=== PATIENT | female | born 1980 ===

== ENCOUNTER 2017-02-13 09:19 | Observation (INO) | payer OTHER ==
--- NOTE | 2017-02-13 09:35 | C.PDOC ---
History Of Present Illness 36 yo female w/o significant PMHx come in for evaluation of gradual onset of lower abdominal pain since today AM associated with nausea. Otherwise, pt denies fever, chills, recent illness, throat pain, CP, SOB, dyspnea, diaphoresis , palpitation, vomiting, diarrhea, UTI sx. At the time of evaluation, pt appears in pain. Time Seen by Provider: 02/13/17 09:25 Chief Complaint (Nursing): Abdominal Pain History Per: Patient History/Exam Limitations: no limitations Onset/Duration Of Symptoms: Sudden Onset (Since morning) Past Medical History Reviewed: Historical Data, Nursing Documentation, Vital Signs Vital Signs: Last Vital Signs Temp 98.4 F 02/13/17 14:06 Pulse 67 02/13/17 14:06 Resp 16 02/13/17 14:06 BP 108/60 02/13/17 14:06 Pulse Ox 98 02/13/17 14:06 - Medical History PMH: No Chronic Diseases Surgical History: Family History: States: No Known Family Hx - Social History Hx Tobacco Use: No Hx Alcohol Use: No Hx Substance Use: No - Immunization History Hx Tetanus Toxoid Vaccination: No Hx Influenza Vaccination: No Hx Pneumococcal Vaccination: No Review Of Systems Except As Marked, All Systems Reviewed And Found Negative. Constitutional: Negative for: Fever, Chills ENT: Negative for: Throat Pain Cardiovascular: Negative for: Chest Pain, Palpitations Respiratory: Negative for: Shortness of Breath Gastrointestinal: Positive for: Nausea, Abdominal Pain (Lower ). Negative for: Vomiting, Diarrhea Physical Exam - Physical Exam Appears: Well, Non-toxic, No Acute Distress Skin: Normal Color, Warm, Dry, No Rash Eye(s): bilateral: PERRL Nose: No Discharge Oral Mucosa: Moist, No Drooling Tongue: Normal Appearing Lips: Normal Appearing Throat: Normal Neck: Trachea Midline, Supple Cardiovascular: Rhythm Regular Respiratory: No Decreased Breath Sounds, No Accessory Muscle Use, No Stridor, No Wheezing Gastrointestinal/Abdominal: Soft, Tenderness (suprapubic and RLQ, moderate), No Organomegaly, No Distention, No Guarding, No Rebound Back: No CVA Tenderness Extremity: Normal ROM, No Pedal Edema Neurological/Psych: Oriented x3, Normal Speech ED Course And Treatment - Laboratory Results Result Diagrams: 02/13/17 10:16 02/13/17 10:16 - CT Scan/US CT - Abd & Pelvis Other Rad Studies (CT/US): Read By Radiologist, Radiology Report Reviewed CT/US Interpretation: PROCEDURE: CT Abdomen and Pelvis with contrast. HISTORY : abd pain. COMPARISON: None available. TECHNIQUE: Contrast dose: 100 cc Omnipaque 350. Radiation dose: Total exam DLP = 246.35 MGy-cm. This CT exam was performed using one or more of the following dose reduction techniques: Automated exposure control, adjustment of the mA and/or kV according to patient size, and/or use of iterative reconstruction technique. FINDINGS: LOWER THORAX : No visible consolidation, pleural effusion, or pneumothorax. LIVER: Unremarkable. GALLBLADDER AND BILE DUCTS: Unremarkable. PANCREAS: Unremarkable. SPLEEN: Unremarkable. ADRENALS: Unremarkable. KIDNEYS AND URETERS: The kidneys enhance symmetrically. No hydronephrosis or obstructing calculus identified. VASCULATURE: No aortic aneurysm. BOWEL: Stomach is nondistended. Lack of oral contrast limits evaluation for bowel pathology. Bowel loops appear within normal limits of caliber without evidence of obstruction. Mild constipation. APPENDIX: The appendix appears within normal limits of caliber. No secondary signs of acute appendicitis. PERITONEUM: No significant free fluid. No definite free air. LYMPH NODES: No bulky adenopathy. BLADDER: Unremarkable. REPRODUCTIVE: 4.2 cm probable right cystic ovarian structure. The uterus is present. BONES: No acute osseous abnormality is detected. OTHER FINDINGS: Small ascites adjacent to the posterior right hepatic lobe. Small fluid within bilateral pericolic gutters and mild associated inflammatory stranding. IMPRESSION: 4.2 cm probable right ovarian cystic lesion. Recommend further evaluation with pelvic ultrasound. Small ascites adjacent to the posterior right hepatic lobe. Small fluid within bilateral pericolic gutters with mild associated inflammatory stranding, nonspecific. Mild constipation. US transvaginal Other Rad Studies (CT/US): Radiology Report Reviewed CT/US Interpretation: IMPRESSION: 4.2 x 3.7 x 4.3 cm complex appearing right ovarian cystic lesion. Correlate clinically and recommend 6 week ultrasound follow-up to assess for complete resolution. Slightly complex pelvic free fluid. Medical Decision Making Medical Decision Making: PLAN: * CT - Abd & Pelvis * US - Transvaginal * CBC * CMP * HCG * Urinalysis * Pepcid IVP * Toradol IVP * Sodium Chloride IV ED OBSERVATION Discharge: Yes Date of observation admission: 02/13/17 Time of observation admission: 09:50 - Observation admission statement Patient is placed on observation because of need: for additional diagnostics to rule-out acute/life threatening conditio - Goals of Observation Goals of Observation: Improvement of pain - Progress Note Time:: 14:37 Observation Progress Note: Patient is awake,vitals are stable and symptoms are improved Progress Note: 02/13/17 At 12:30, pt appears improved, pt sts" pain is better". Afebrile, hemodynamicaly stable. non-toxic. Abd: benign, (-) guarding, (-) rebound. Blood work review and appears normal. CT abd/pelvis results review (+) 4.2 cm probable right ovarian cystic lesion. Recommend further evaluation with pelvic ultrasound. results review and discussed with pt. Agrees with plan, Pelvic US order. At 14:37 ,pt reports " feels better", pain 2/10 now. US results review and discussed with HEALTH AND SAFETY SPECIALIST-on-call . Discharge with outpt f/u recommend. On re-eavl, pt is afebrile, hemodynamicalys table. non-toxic. Ambulatory rin ED with stable gait. ENT: no acute findings. Abd: benign, (-) guarding, (-) rebound. back: (-) CVA tenderness. results review and discussed with pt. Pt understand and agrees with discharges. Disposition Counseled Patient/Family Regarding: Studies Performed, Diagnosis, Need For Followup, Rx Given - Disposition Disposition: HOME/ ROUTINE Disposition Time: 14:05 Condition: STABLE - Clinical Impression Clinical Impression: Abdominal pain, Complex ovarian cyst - PA / DIRECTOR OF LEADERSHIP DEVELOPMENT / Resident Statement MD/DO has reviewed & agrees with the documentation as recorded. - Scribe Statement The provider has reviewed the documentation as recorded by the Scribe Miryam Mendosa All medical record entries made by the Irwinibe were at my direction and personally dictated by me. I have reviewed the chart and agree that the record accurately reflects my personal performance of the history, physical exam, medical decision making, and the department course for this patient. I have also personally directed, reviewed, and agree with the discharge instructions and disposition.
[2017-02-13] MEDS ORDERED: Sodium Chloride 0.9% 1,000 ML IV ONE (10:05)
[2017-02-13 10:22] LABS: BASO # 0.1 K/uL (0.0-0.2); BASO % 1.4 % (0.0-2.0); EOS # 0.2 K/uL (0.0-0.7); EOS % 2.3 % (0.0-4.0); LYMPH % 26.7 % (20.0-40.0); MEAN CELL VOLUME 83.4 fL (81.0-99.0); MEAN CORPUSCULAR HEMOGLOBIN 27.4 pg (27.0-31.0); MEAN CORPUSCULAR HGB CONC 32.9 g/dL (33.0-37.0); MEAN PLATELET VOLUME 11.6 fL (7.2-11.7); MONO # 0.6 K/uL (0.0-0.8); MONO % 8.4 % (0.0-10.0); NRBC % 0.1 % (0.0-2.0); RED CELL DISTRIBUTION WIDTH 17.9 % (11.5-14.5); WHITE BLOOD COUNT 7.6 K/uL (4.8-10.8)
[2017-02-13] MEDS ORDERED: Sodium Chloride 0.9% 1,000 ML ONE (10:22)
[2017-02-13 10:34] LABS: CHLORIDE 102 mmol/L (98-107)
[2017-02-13 10:35] LABS: POTASSIUM 4.4 mmol/L (3.6-5.2); SODIUM 140 mmol/L (132-148)
[2017-02-13 10:35] LABS: RBC URINE < 1 /hpf (0-3); URINE BILIRUBIN NEGATIVE (NEGATIVE); URINE BLOOD NEGATIVE (NEGATIVE); URINE COLOR Yellow (YELLOW); URINE GLUCOSE (UA) NORMAL (Normal); URINE KETONE NEGATIVE (NEGATIVE); URINE LEUKOCYTE ESTERASE NEG Leu/uL (Negative); URINE PROTEIN NEGATIVE (NEGATIVE); URINE UROBILINOGEN NORMAL mg/dL (0.2-1.0)
[2017-02-13 10:37] LABS: ALB/GLOB RATIO 1.2 (1.0-2.1); ALKALINE PHOSPHATASE 38 U/L (38-126); ALT/SGPT 24 U/L (9-52); AST/SGOT 20 U/L (14-36); BILIRUBIN,TOTAL 0.5 mg/dL (0.2-1.3); BLOOD UREA NITROGEN 9 mg/dL (7-17); CARBON DIOXIDE 21 mmol/L (22-30); GFR AFRICAN-AMERICAN > 60; TOTAL PROTEIN 8.3 g/dL (6.3-8.3)
[2017-02-13 10:38] LABS: CALCIUM 8.5 mg/dl (8.6-10.4); GLUCOSE,RANDOM 86 mg/dL (65-105)
[2017-02-13] MEDS ORDERED: Iohexol 350mg/ml 100 ML ONE (11:04)
--- NOTE | 2017-02-13 12:25 | CT ---
PROCEDURE: CT Abdomen and Pelvis with contrast HISTORY: abd pain COMPARISON: None available TECHNIQUE: Contrast dose: 100 cc Omnipaque 350 Radiation dose: Total exam DLP = 246.35 MGy-cm. This CT exam was performed using one or more of the following dose reduction techniques: Automated exposure control, adjustment of the mA and/or kV according to patient size, and/or use of iterative reconstruction technique. FINDINGS: LOWER THORAX: No visible consolidation, pleural effusion, or pneumothorax. LIVER: Unremarkable. GALLBLADDER AND BILE DUCTS: Unremarkable. PANCREAS: Unremarkable. SPLEEN: Unremarkable. ADRENALS: Unremarkable. KIDNEYS AND URETERS: The kidneys enhance symmetrically. No hydronephrosis or obstructing calculus identified. VASCULATURE: No aortic aneurysm. BOWEL: Stomach is nondistended. Lack of oral contrast limits evaluation for bowel pathology. Bowel loops appear within normal limits of caliber without evidence of obstruction. Mild constipation. APPENDIX: The appendix appears within normal limits of caliber. No secondary signs of acute appendicitis. PERITONEUM: No significant free fluid. No definite free air. LYMPH NODES: No bulky adenopathy. BLADDER: Unremarkable. REPRODUCTIVE: 4.2 cm probable right cystic ovarian structure. The uterus is present. BONES: No acute osseous abnormality is detected. OTHER FINDINGS: Small ascites adjacent to the posterior right hepatic lobe. Small fluid within bilateral pericolic gutters and mild associated inflammatory stranding. IMPRESSION: 4.2 cm probable right ovarian cystic lesion. Recommend further evaluation with pelvic ultrasound. Small ascites adjacent to the posterior right hepatic lobe. Small fluid within bilateral pericolic gutters with mild associated inflammatory stranding, nonspecific. Mild constipation.
--- NOTE | 2017-02-13 13:56 | US ---
HISTORY: RLQ pain COMPARISON: CT abdomen and pelvis with contrast performed earlier the same day. TECHNIQUE: Real-time transabdominal pelvic ultrasound was performed. In addition a transvaginal pelvic ultrasound was necessary to better depict pelvic anatomy. FINDINGS: UTERUS: Measures 11.3 x 4.2 x 6.7 cm. Anteverted. ENDOMETRIUM: Measures 1.0 cm in diameter. CERVIX: No cervical abnormality identified. RIGHT OVARY: Measures 4.7 x 4.8 x 6.3 cm. Blood flow is demonstrated. 4.2 x 3.7 x 4.3 cm complex appearing right ovarian cystic lesion. LEFT OVARY: Measures 2.5 x 1.7 x 2.5 cm. Blood flow is demonstrated. FREE FLUID: Slightly complex pelvic free fluid. OTHER FINDINGS: None. IMPRESSION: 4.2 x 3.7 x 4.3 cm complex appearing right ovarian cystic lesion. Correlate clinically and recommend 6 week ultrasound follow-up to assess for complete resolution. Slightly complex pelvic free fluid.
[2017-02-13 14:07] VITALS: BP 108/60; PULSE 67; RESP 16; TEMP 98.4; O2SAT 98
== END 2017-02-13 14:39 | disposition home or self-care (01) ==
LOC: C.ER 09:19 → C.9OBSV 09:40
PROVIDERS: ADMIT Emergency Medicine; ATTEND Emergency Medicine
DX: R10.9 Unspecified abdominal pain (principal); N83.209 Unspecified ovarian cyst, unspecified side
CPT/HCPCS: 74177; 76830; 76856; 80053; 81001; 83690; 84703; 85025; 96374; 96375; 99285; G0378; J1885; J2405; J7040; Q9967